=== PATIENT | female | born 1990 | race Caucasian/White ===

== ENCOUNTER 2016-12-30 16:00 | Inpatient (IN) | payer OTHER ==
--- NOTE | ~2016-12-30 | DS ---
Unit #: [id number] #: [id number] Patient: MAIA LOYD [id number] [facility] [address] [place] [address] [id number] MR#: [id number] NAME: MAIA LOYD ROOM: [facility] Age: 26 Sex: F Admission Date: 12/30/2016 : 1990 Discharge Date: 01/03/2017 Attending Physician: Garfield Ritter M.D. Primary Care Physician: Primary Care Physician No DISCHARGE SUMMARY REASON FOR ADMISSION Substance abuse, using amphetamine and marijuana. DIAGNOSTIC STUDIES LABORATORY RESULTS: Remarkable for urine drug screen positive for amphetamine and marijuana and test positive, quantitative 13,814. HOSPITAL COURSE The patient was admitted to inpatient unit on 12/30/2016 and discharged on 01/03/2017. The patient was treated on the inpatient unit with psychoeducation, psychotherapy, and structured milieu. Medication was not used because of the patient being in first trimester of . The patient was also followed by a medical doctor. The patient requested for discharge. The patient was not suicidal or homicidal. No psychotic symptom. The patient was subsequently discharged with a plan to follow up on the outpatient basis. The patient is to follow up through [facility]. DISCHARGE DIAGNOSES Psychiatric: 1. Amphetamine use disorder, severe, F15.20. 2. Cannabis abuse disorder, moderate to severe, F12.20. 3. Major depressive disorder, recurrent. Secondary diagnosis: Deferred. Medical diagnosis: , first trimester. Stressors: Psychosocial stressors. DISCHARGE INSTRUCTIONS The patient is to follow up in outpatient clinic as per high school social science teacher. CONDITION ON DISCHARGE The patient was pleasant and cooperative. Denied any psychotic symptom or any suicidal ideation. PROGNOSIS Guarded. DIET AND ACTIVITY As tolerated. Dictated by... Unit #: [id number] #: [id number] Patient: MAIA LOYD Garfield Ritter M.D. SZC/ismaell TD: 01/04/2017 04:08 JOB #: [id number] DISCHARGE SUMMARY Page 1 of 1 X Garfield Ritter MD X DISCHARGE SUMMARY
--- NOTE | ~2016-12-30 | PA ---
Unit #: [id number] #: [id number] Patient: MAIA LOYD [id number] [facility] [address] [place] [address] [id number] I MR#: [id number] NAME: MAIA LOYD ROOM: P252 Age: 26 Sex: F Admission Date: 12/30/2016 : 1990 Date of Assessment: 12/31/2016 Attending Physician: Garfield Ritter M.D. Admitting Physician: Garfield Ritter M.D. Primary Care Physician: Primary Care Physician No PSYCHIATRIC ASSESSMENT INFORMANTS The patient's reliability, fair; chart reliability, good. CHIEF COMPLAINT Methamphetamine abuse. HISTORY OF PRESENT ILLNESS Ms. Blanco is a 26-year-old female, presented with the above-mentioned complaint. The patient reported currently homeless, smoking 5 to 10 dollars of methamphetamine. The patient reported she got positive test 2 weeks ago. The patient reports that her life circumstances led to thoughts of wanting to kill herself. The patient has been having thoughts of slitting her wrist, feeling sad and depressed. The patient reports poor support system. Reported history of tobacco use, age of onset 12; alcohol, age of onset 15; marijuana, age of onset 15; amphetamine, age of onset 16. The patient currently denied any withdrawal symptoms. Needing inpatient admission at this time for psychiatric stabilization. PAST PSYCHIATRIC HISTORY Unremarkable for any history of previous treatment. FAMILY HISTORY AND SOCIAL HISTORY The patient has a poor support system, currently homeless. No history of abuse. MEDICAL HISTORY Remarkable for , currently in first trimester. Musculoskeletal; strength and tone, no atrophy or abnormal movement. Gait normal. MEDICATION HISTORY None. ALLERGIES No known drug allergies. SUBSTANCE ABUSE HISTORY Please see above. REVIEW OF SYSTEMS HEENT: Eyes, clear. Ears, nose, mouth, and throat; clear. CARDIOVASCULAR: Unremarkable. RESPIRATORY: Unremarkable. Unit #: [id number] #: [id number] Patient: MAIA LOYD GI: Unremarkable. : Unremarkable. SKIN: Unremarkable. LYMPH NODE: Unremarkable. NEUROLOGIC: Unremarkable. ENDOCRINE: Unremarkable. HEMATOLOGIC: Unremarkable. ALLERGIC/IMMUNOLOGIC: Unremarkable. MUSCULOSKELETAL: Muscle strength and tone, no atrophy or abnormal movement. Gait normal. MENTAL STATUS EXAMINATION CONSTITUTIONAL: Measurement of vital signs; temperature 98.3, pulse 87, respirations 18, blood pressure 118/79; height 5 feet 4 inches, weight 174 pounds. GENERAL APPEARANCE: The patient dressed casually. No facial deformity noted. MUSCULOSKELETAL: Please see above. PSYCHIATRIC EXAMINATION Description of speech; regular rate, normal volume. Description of thought process, goal directed. Description of association, intact. Description of abnormal psychotic thinking; the patient denied any hallucination or delusions, but mood lability and depression. Description of the patient's judgment; concerning everyday activity, poor. Social situation, poor. Concerning psychiatric condition, poor. Complete mental status examination; oriented in time, place, and person. Recent and remote memory, fair. Attention span and concentration, fair. Language, able to name object and repeat phrases. Fund of knowledge, aware of current event and passive vocabulary intact. Mood and affect, sad and dysphoric. Insight and judgment, fair to poor. ASSETS AND LIABILITIES Assets; the patient is articulate, able to take care of her ADL. Liability; depression, substance abuse, . ADMITTING DIAGNOSES Psychiatric: Major depressive disorder, recurrent, severe, F33.2; amphetamine use disorder, severe, F15.20. Secondary diagnosis: Deferred. Medical diagnoses: , first trimester. Stressors: Psychosocial stressors. PSYCHIATRIC PLAN AND TREATMENT GOAL 1. Advised to admit the patient on the inpatient unit. Provide safe, supportive, and structured environment. 2. Ordered labs; CBC, CMP, UA, and UDS. 3. Precaution for aggression, self-harm. 4. Monitor for any withdrawal symptom. Medical consultation for . Advised vitamin. Treatment goal to attain euthymic mood, gain insight into her problem, and learn coping skills. The patient to attend all the programing on the inpatient unit. DISCHARGE PLAN Unit #: [id number] #: [id number] Patient: MAIA LOYD Plan to stabilize the patient and consider followup in outpatient program. ESTIMATED LENGTH OF STAY 3 to 5 days. Dictated by... Garfield Ritter M.D. VIRGILIO/jose l TD: 01/01/2017 08:09 JOB #: [id number] PSYCHIATRIC ASSESSMENT Page 1 of 1 X Garfield Ritter MD X PSYCHIATRIC ASSESSMENT
--- NOTE | ~2016-12-30 | PN ---
Unit #: [id number] #: [id number] Patient: MAIA LOYD [id number] [facility] [address] [place] [address] [id number] I MR#: [id number] NAME: MAIA LOYD ROOM: P252 Age: 26 Sex: F Admission Date: 12/30/2016 : 1990 Attending Physician: Garfield Ritter M.D. Admitting Physician: Garfield Ritter M.D. Primary Care Physician: Primary Care Physician Elenita BOWMAN PROGRESS NOTES DATE 01/01/2017 DISCUSSION Ms. Blanco is a 26-year-old female seen on 01/01/2017. Patient interviewed. Chart reviewed. Obtained information from nursing staff. Patient compliant, cooperative. Mood sad, dysphoric, withdrawn, flat. Currently on no psychotropic medication because of patient being . Patient's test showed quantitative 13,814, that put her in the range of 7 to 12 weeks . Complete review of system unremarkable. MENTAL STATUS EXAMINATION General appearance, patient dressed casually. Attention span, concentration fair. Oriented in place and person. Mood and affect sad, dysphoric, flat. Speech monotone. Thought process concrete. Patient denied any thoughts of harming self or others. Recent and remote memory poor. Insight and judgement poor. DIAGNOSES 1. Cannabis abuse, moderate. 2. Amphetamine abuse disorder, moderate. ASSESSMENT/PLAN Advised to continue with current therapeutic intervention on the inpatient unit. If needed, try to avoid any medication. We will continue to monitor patient. Dictated by... Jose Parry/charlie TD: 01/02/2017 19:53 JOB #: [id number] Unit #: [id number] #: [id number] Patient: MAIA LOYD [facility] PROGRESS NOTES Page 1 of 1 X Garfield Ritter MD X PROGRESS NOTE
--- NOTE | ~2016-12-30 | HP ---
Unit #: [id number] #: [id number] Patient: FRANCIS LOYD [id number] [place] [address] [id number] MR#: [id number] NAME: FRANCIS LOYD ROOM: P252 Age: 26 Sex: F Admission Date: 12/30/2016 : 1990 Attending Physician: Garfield Ritter M.D. Admitting Physician: Garfield Ritter M.D. Primary Care Physician: Primary Care Physician No HISTORY AND PHYSICAL HISTORY OF PRESENT ILLNESS Francis is a 26 year old admitted to [address] [place] [address] because of her drug use. She reports that she had a positive test 48 hours prior to admission and wants to detox. PAST MEDICAL HISTORY 1. History of illicit substance abuse to include alcohol, marijuana, and methamphetamine. 2. Obesity. PAST SURGICAL HISTORY Nothing reported. ALLERGIES No known drug allergies. SOCIAL HISTORY Smokes 1/2 pack a day. Drinks alcohol frequently to excess. Admits to illicit substance abuse to include methamphetamine. FAMILY HISTORY Medically noncontributory. REVIEW OF SYSTEMS CONSTITUTIONAL: No fever or chills. HEENT: Denies any sore throat, ear pain or runny nose. CARDIOVASCULAR: Denies chest pain, irregular heart rhythm or palpitations. CHEST: Denies shortness of breath or cough. No hemoptysis. GASTROINTESTINAL: Denies nausea, vomiting, diarrhea or chronic constipation. ENDOCRINE: Denies history of increased thirst or urination. No recent significant weight loss or gain. GENITOURINARY: Denies dysuria, frequency, or hematuria. SKIN: Denies any rashes. HEMATOLOGIC: Denies history of increased bleeding or bruising. MUSCULOSKELETAL: Denies any hot, swollen joints. No generalized muscle pain. NEUROLOGIC: Denies problems with vision or speech. No frequent, severe headaches. No numbness, tingling or weakness in any extremities. Denies loss of bladder or bowel control. CURRENT MEDICATIONS Unit #: [id number] #: [id number] Patient: FRANCIS LOYD 1. vitamin 1 q day 2. Milk of Magnesia p.r.n. 3. Melatonin p.r.n. 4. Preparation H p.r.n. PHYSICAL EXAMINATION GENERAL: Alert, obese, in no apparent distress. VITAL SIGNS: Blood pressure 120/80, heart rate 86, respirations 16, temperature 98.6. WEIGHT: 174 pounds. HEIGHT: 5'4". SKIN: Warm and dry without rash or lesion. HEENT: Normocephalic. TMs not viewed. Oral and nasal passages clear. Conjunctivae clear. Pupils equal, round and reactive to light and accommodation. Extraocular movements intact. NECK: Supple without lymphadenopathy or thyromegaly. HEART: Regular rate and rhythm without murmur. LUNGS: Clear. ABDOMEN: Soft, nontender. : Not done. EXTREMITIES: No evidence of cyanosis, clubbing or edema. Moves all extremities without focal deficit. NEUROLOGICAL: Grossly within normal limits. Cranial Nerves: II: Visual alexander are intact. III, IV AND : Extraocular movements are intact. Pupils are equal, round and reactive to light. V: Facial sensation is grossly normal. VII: Facial movements and expression are normal. VIII: Auditory acuity grossly intact. IX, X: Uvula is midline. Phonation is normal. XI: Patient shrugs shoulders and turns head normally. XII: Tongue protrudes in the midline. Sensory and Motor Function: Sensory and motor sensation is grossly normal. Motor: moves all extremities well. Coordination: Gait is normal. Deep Tendon Reflexes: Intact. ADMISSION LABS Beta HCG quantitative thirteen thousand eight hundred and fourteen. IMPRESSION 1. Illicit substance abuse 2. The patient with positive Beta HCG RECOMMENDATIONS PSYCHIATRIC: Per psychiatrist. MEDICAL: Detox meds are limited because of her MEDICAL PROGNOSIS Good. MEDICAL CONDITION Stable. Dictated by... Unit #: [id number] #: [id number] Patient: FRANCIS LOYD Job GrewalAMarybel-Bimal. for Jose Zabala TD: 01/01/2017 00:08 JOB #: [id number] HISTORY AND PHYSICAL Page 1 of 1 X Dasha Pham HISTORY AND PHYSICAL
--- NOTE | ~2016-12-30 | PN ---
Unit #: [id number] #: [id number] Patient: MAIA LOYD [id number] [facility] [address] [place] [address] [id number] MR#: [id number] NAME: MAIA LOYD ROOM: P252 Age: 26 Sex: F Admission Date: 12/30/2016 : 1990 Attending Physician: Garfield Ritter M.D. Admitting Physician: Garfield Ritter M.D. Primary Care Physician: Primary Care Physician Elenita BOWMAN PROGRESS NOTES DATE 01/02/2017 DISCUSSION Ms. Balnco is a 26-year-old female seen on 01/02/2017. Patient interviewed. Chart reviewed. Obtained information from nursing staff. Patient was compliant, cooperative. Mood sad, dysphoric, flat affect, withdrawn, isolative. Patient denied any complaints, mostly isolative in her room. Complete review of system unremarkable. MENTAL STATUS EXAMINATION General appearance, patient dressed casually. Attention span, concentration fair. Oriented in time, place and person. Mood and affect was sad, dysphoric. Speech monotone. Thought process concrete. Patient denied any thoughts of harming self or others or any psychotic symptoms. Recent and remote memory poor. Insight and judgement poor. DIAGNOSES 1. Mood disorder NOS. 2. Amphetamine use disorder, moderate. 3. Opiate use disorder, moderate. ASSESSMENT/PLAN Advised to continue with current therapeutic intervention to improve coping skill. Safety plan, continue with the inpatient programming. Patient scheduled to followup with medical doctor. Patient's beta HCG positive, quantitative 10131. Dictated by... Jose Parry/charlie TD: 01/03/2017 21:49 JOB #: [id number] Unit #: [id number] #: [id number] Patient: MAIA LOYD [facility] PROGRESS NOTES Page 1 of 1 X Garfield Ritter MD PROGRESS NOTE
[2016-12-31 09:41] LABS: BASOPHIL% 0.5 % (0-2.5); EOSINOPHIL# 0.1 X10e3 (0-0.7); EOSINOPHIL% 1.9 % (0.0-7.0); HEMATOCRIT 37.3 % (35.0-45.0); HEMOGLOBIN 12.4 gm/dL (12.0-16.0); LYMPHOCYTE# 1.8 X10e3 (1.0-3.5); MEAN CELL VOLUME 86.7 FL (83-96); MEAN CORPUSCULAR HEMOGLOBIN 28.9 PG (28-34); MEAN CORPUSCULAR HGB CONC 33.3 g/dL (30-36); MEAN PLATELET VOLUME 9.2 FL (6.5-11.5); MONOCYTE# 0.6 X10e3 (0-1.0); MONOCYTE% 9.8 % (3.0-12.0); NEUTROPHIL# 3.3 X10e3 (1.5-7.1); NEUTROPHIL% 56.8 % (40-75); PLATELET COUNT 158 X10e3 (140-420); RED BLOOD COUNT 4.31 X10e (3.90-5.30); RED CELL DISTRIBUTION WIDTH 12.6 % (11.0-15.5); WHITE BLOOD COUNT 5.8 X10e3 (4.0-10.5)
[2016-12-31 09:47] LABS: DIFF IND NO
[2016-12-31 09:59] LABS: ALBUMIN SERUM 3.7 g/dL (3.5-5.0); BILIRUBIN,TOTAL 0.5 mg/dL (0.2-2.0); BUN/CREATININE RATIO 14.28; CALCIUM SERUM 8.7 mg/dL (8.4-10.2); CREATININE SERUM 0.7 mg/dL (0.6-1.4); GLOM FILT RATE Estimated 118.7 mL/min (>60); PROTEIN TOTAL SERUM 6.1 g/dL (6.0-8.3)
[2017-01-01 10:08] LABS: URINE APPEARANCE CLEAR; URINE BILIRUBIN NEG (NEG); URINE BLOOD NEG (NEG); URINE COLOR YELLOW; URINE GLUCOSE NEG (NEG); URINE KETONE NEG (NEG); URINE LEUKOCYTE ESTERASE NEG (NEG); URINE NITRATE NEG (NEG); URINE PH 8.5 (5-8); URINE PROTEIN NEG (NEG); URINE SPECIFIC GRAVITY 1.019 (1.003-1.035)
[2017-01-01 10:48] LABS: AMPHETAMINE POS (NEG); BARBITURATES NEG (NEG); BENZODIAZEPINES NEG (NEG); COCAINE NEG (NEG); MARIJUANA POS (NEG); OPIATES NEG (NEG); TRICYCLIC ANTIDEPRESSANTS NEG (NEG); U METHADONE NEG (NEG)
== END 2017-01-03 10:38 | DRG 781 ==
LOC: P2L 17:43
PROVIDERS: Psychiatry & Neurology Psychiatry
PROC: HZ2ZZZZ Detoxification Services for Substance Abuse Treatment (ICD-10-PCS; principal; 2016-12-30)
DX: O99.341 Other mental disorders complicating pregnancy, first trimester (principal); F33.2 Major depressive disorder, recurrent severe without psychotic features; F15.20 Other stimulant dependence, uncomplicated; O99.321 Drug use complicating pregnancy, first trimester; F11.20 Opioid dependence, uncomplicated; Z59.0 Homelessness; O99.331 Smoking (tobacco) complicating pregnancy, first trimester; F17.210 Nicotine dependence, cigarettes, uncomplicated; Z3A.00 Weeks of gestation of pregnancy not specified; F12.20 Cannabis dependence, uncomplicated; F39 Unspecified mood [affective] disorder
CPT/HCPCS: 80053; 80307; 81003; 84702; 85025